=== PATIENT | male | born 1975 | race African-American/Black ===

== ENCOUNTER 2017-03-21 10:18 | Emergency (ER) | payer MEDICAID ==
[~2017-03-21] VITALS: Ht 170.2 cm; Wt 63.0 kg
[2017-03-21 10:19] VITALS: BP 134/85
[2017-03-21] MEDS ORDERED: KETOROLAC 60MG/2ML VIAL IM ONE (10:45)
[2017-03-21] MEDS ORDERED: ONDANSETRON 4MG ODT PO ONE (10:45)
[2017-03-21] MEDS ORDERED: ONDANSETRON 4MG ODT ONE (11:05)
== END 2017-03-21 11:37 | disposition home or self-care (01) ==
LOC: ER 10:28
DX: S16.1XXA Strain of muscle, fascia and tendon at neck level, initial encounter (principal); F12.10 Cannabis abuse, uncomplicated; Z90.49 Acquired absence of other specified parts of digestive tract; Z98.890 Other specified postprocedural states; X58.XXXA Exposure to other specified factors, initial encounter; Y93.89 Activity, other specified; Y99.8 Other external cause status; Y92.89 Other specified places as the place of occurrence of the external cause
CPT/HCPCS: 72040; 96372; 99284; J1885; Q0162

== ENCOUNTER 2017-05-14 10:00 | Emergency (ER) | payer MEDICAID ==
[~2017-05-14] VITALS: Ht 165.1 cm; Wt 72.0 kg
[2017-05-14] MEDS ORDERED: ACETAMINOPHEN WITH CODEINE 300/30MG TABLET PO ONE (13:45)
[2017-05-14] MEDS ORDERED: LIDOCAINE HCL 1% 20ML VIAL (Pyxis) INJ MC ONE (13:45)
[2017-05-14] MEDS ORDERED: BACITRACIN ZINC OINT UDPKT TOP ONE (15:00)
[2017-05-14 15:28] VITALS: BP 127/83
== END 2017-05-14 15:29 | disposition home or self-care (01) ==
LOC: ER 11:07
DX: L03.119 Cellulitis of unspecified part of limb (principal); L02.419 Cutaneous abscess of limb, unspecified; T63.301A Toxic effect of unspecified spider venom, accidental (unintentional), initial encounter; F12.10 Cannabis abuse, uncomplicated
CPT/HCPCS: 10061; 99284; J3490

== ENCOUNTER 2017-09-18 15:06 | Emergency (ER) | payer MEDICAID ==
[~2017-09-18] VITALS: Ht 172.7 cm; Wt 71.1 kg
[2017-09-18] MEDS ORDERED: LIDOCAINE HCL 1% 20ML VIAL (Pyxis) INJ MC ONE (18:15)
[2017-09-18] MEDS ORDERED: ACETAMINOPHEN 325MG TABLET PO ONE (18:15)
[2017-09-18] MEDS ORDERED: LIDOCAINE HCL/PF 1% 10 MG/ML 5ML VIAL IJ ONE (18:45)
[2017-09-18] MEDS ORDERED: LIDOCAINE HCL 1% 20ML VIAL (Pyxis) INJ INFIL ONE (18:45)
[2017-09-18 20:02] VITALS: BP 132/80
== END 2017-09-18 20:44 | disposition home or self-care (01) ==
LOC: ER 15:06
DX: L73.9 Follicular disorder, unspecified (principal); R03.0 Elevated blood-pressure reading, without diagnosis of hypertension; F12.90 Cannabis use, unspecified, uncomplicated; F17.210 Nicotine dependence, cigarettes, uncomplicated
CPT/HCPCS: 10060; 99283; J3490; Z7610

== ENCOUNTER 2019-07-29 14:20 | Emergency (ER) | payer SELFPAY ==
[~2019-07-29] VITALS: Ht 172.7 cm; Wt 71.0 kg
[2019-07-29 14:24] VITALS: BP 133/96
[2019-07-29] MEDS ORDERED: KETOROLAC 30MG/ML VIAL IM ONE (15:00)
== END 2019-07-29 15:45 | disposition home or self-care (01) ==
LOC: ER 14:20
DX: S30.0XXA Contusion of lower back and pelvis, initial encounter (principal); F12.10 Cannabis abuse, uncomplicated; Z90.49 Acquired absence of other specified parts of digestive tract; W03.XXXA Other fall on same level due to collision with another person, initial encounter; Y93.89 Activity, other specified; Y92.89 Other specified places as the place of occurrence of the external cause; Y99.8 Other external cause status
CPT/HCPCS: 72100; 96372; 99283; J1885